=== PATIENT | male | born 1990 | race African-American/Black ===

== ENCOUNTER 2018-04-10 23:12 | Emergency (ER) | END 2018-04-11 01:15 | disposition home or self-care (01) | DX: L02.415 Cutaneous abscess of right lower limb (principal) ==

== ENCOUNTER 2018-05-12 14:07 | Emergency (ER) | payer OTHER ==
[~2018-05-12] VITALS: Ht 185.4 cm; Wt 85.0 kg
[~2018-05-12 14:07] MED LIST: CEPH-460 PO; LORA-400 PO; MUPI2OIN TOPICAL
[2018-05-12 14:38] VITALS: BP 161/84; PULSE 99; RESP 16; TEMP 100.2; O2SAT 100
[2018-05-12] MEDS ORDERED: CLIN300C5 PO (16:51)
--- NOTE | 2018-05-12 16:58 | PD ---
HPI Chief Complaint: Eye Problems/Injury Time Seen by Provider: 16:42 Travel History International Travel<30 days: No Contact w/Intl Traveler<30days: No Traveled to known affect area: No History of Present Illness HPI 27-year-old male presents to the emergency room for evaluation of abscess to his right upper eyelid for the past 3 days. Patient tried to pop a pimple that was on his eyebrow and states since then it seems to have spread. It is now localized to the entire upper eyelid. He denies any drainage from the pimple. Denies any eye pain, drainage, redness, changes in visual acuity, fevers, chills , nausea, vomiting. No chronic medical conditions or daily medications. Patient was seen 1 month ago for abscess to his leg and discharged with prescriptions for mupirocin and Keflex. Cultures grew MRSA and prescription was never changed from Keflex. PFSH Past Medical History Cardiovascular Problems: Yes (ENLARGED LEFT VENTRICLE, HTN) Social History Alcohol Use: No Tobacco Use: No Substance Use: No Allergies-Medications (Allergen,Severity, Reaction): Coded Allergies: cat dander (Unverified Allergy, Intermediate, Itching, 04/10/18) dog dander (Unverified Allergy, Intermediate, Itching, 04/10/18) Reported Meds & Prescriptions Reported Meds & Active Scripts Active Clindamycin (Clindamycin HCl) 300 Mg Cap 300 Mg PO Q8HR 10 Days Mupirocin Topical (Mupirocin) 2 % Oint 1 Applic TOPICAL BID Keflex (Cephalexin) 500 Mg Cap 500 Mg PO Q12H 10 Days Reported Claritin-D 24 HR (Loratadine-Pseudoephedrine 24 HR) 10-240 Mg Tab 1 Tab PO DAILY Review of Systems Except as stated in HPI: all other systems reviewed are Neg Physical Exam Narrative GENERAL: Well-nourished, well-developed male in no acute distress. Afebrile. Ambulatory SKIN: Focused skin assessment warm/dry. There is an indurated area in the right upper eyelid which measures about 3 cm in diameter. It is fluctuant with spontaneous purulent drainage. There is a zone of inflammation around it but no lymphangitis. HEAD: Normocephalic. EYES: PERRL, EOMI without pain, no discharge or injection. No scleral icterus. No proptosis. NECK: Supple, trachea midline. No JVD or lymphadenopathy. CARDIOVASCULAR: Regular rate and rhythm without murmurs, gallops, or rubs. RESPIRATORY: Breath sounds equal bilaterally. No accessory muscle use. PSYCHIATRIC: No delusional thought processes. No hallucinations. Data Data Last Documented VS Vital Signs Date Time Temp Pulse Resp B/P (MAP) Pulse Ox O2 Delivery O2 Flow Rate FiO2 05/12/18 14:38 100.2 99 16 161/84 (109) 100 MDM Medical Decision Making Medical Screen Exam Complete: Yes Emergency Medical Condition: Yes Medical Record Reviewed: Yes Differential Diagnosis Abscess, cellulitis, folliculitis, MRSA Narrative Course 27-year-old male presents to the emergency room for evaluation of abscess to his right upper eyelid for the past 3 days. He had a small pimple and tried to pop it and since then it has spread to the entire upper eyelid. He denies any eye pain, eye drainage, or eye redness. Physical exam is reassuring. There is a large abscess at the right medial eyebrow with surrounding erythema. No lymphangitis. It is spontaneously draining purulent discharge. Patient's temperature on recheck was 99.5. Visual acuity is. Right eye is without injection or drainage. EOMI without pain. No proptosis. This is preseptal cellulitis. Patient was instructed to apply warm compresses to the affected area to help draw out infection. Discharged with prescription for clindamycin and told return to the emergency room for worsening symptoms. He understands and agrees to plan. Diagnosis Primary Impression: Preseptal cellulitis of right upper eyelid Referrals: Primary Care Physician Additional Instructions: Rest and drink plenty of fluids. Apply warm compresses to the affected area for 20 minutes at a time, 5 times daily. Clindamycin as directed, until gone. Follow-up with a primary care physician. Return to the emergency room for worsening symptoms. Med/Other Pt SpecificInfo: Prescription(s) given Scripts Clindamycin (Clindamycin) 300 Mg Cap 300 MG PO Q8HR for Infection for 10 Days, CAP 0 Refills Prov: Ernestina Edwards MD 05/12/18 Disposition: 01 DISCHARGE HOME Condition: Stable Elke Bray May 12, 2018 16:58
[2018-05-12 17:39] VITALS: TEMP 97.5
== END 2018-05-12 17:36 | disposition home or self-care (01) ==
LOC: NEPK 14:07
DX: H00.031 Abscess of right upper eyelid (principal); I10 Essential (primary) hypertension
CPT/HCPCS: 99283